=== PATIENT | female | born 1935 | race Caucasian/White ===

== ENCOUNTER 2016-10-10 14:14 | Outpatient (CLI) | payer MEDICARE, OTHER ==
[2014-03-30 09:56] VITALS: BP 131/61
== END 2016-10-10 14:15 ==
LOC: LAB 14:14
PROVIDERS: ATTEND Family Medicine
DX: E83.52 Hypercalcemia (principal)
CPT/HCPCS: 36415; 82310; 83970

== ENCOUNTER 2017-01-08 11:01 | Outpatient (CLI) | payer MEDICARE, OTHER ==
[2014-03-30 09:56] VITALS: BP 131/61
[2017-01-08 11:18] LABS: BASOPHILS % 0.7 (0.0-1.5); EOSINOPHILS % 1.4 % (0.0-6.8); MEAN CORPUSCULAR HEMOGLOBIN 25.7 pg (28.0-34.0); MONOCYTES % 6.9 % (0.0-11.0); NEUTROPHILS # 3.8 # k/uL (1.4-7.7)
--- NOTE | 2017-01-08 17:07 | Diagnostic Imaging Report ---
[facility] [address] [facility].[address] [address] Report Submission Date: January 08, 2017 4:15:40 PM CDT Patient Study Name: NORMA TRUJILLO Date: January 08, 2017 11:19:46 AM CDT Modality Type: CR Gender: F Description: CHEST : 35 Institution: [facility] Physician: MEJIA SOUZA - OP 2 views of the chest History: NON-PRODUCTIVE COUGH X COUPLE WEEKS. NON-SMOKER. ORDER STATES RIGHT CERVICAL LAD Findings: Comparison: None available Cardiomegaly is present with aortic calcification. Aorta is tortuous There is patchy opacity in the right lower lung field with slight obscuration of the right heart border. Minimal left basilar atelectasis. Multilevel degenerative changes of the thoracic spine are seen with demineralized bones Impression: 1. Infiltrate right lower lung. Recommend followup to resolution. 2. Minimal left basilar atelectasis. No pleural effusion. Electronically signed on January 08, 2017 4:15:40 PM CDT by: Judy SAUCEDO
== END 2017-01-08 11:02 ==
LOC: RAD 11:01
PROVIDERS: ATTEND Family Medicine
DX: E11.9 Type 2 diabetes mellitus without complications (principal); R59.0 Localized enlarged lymph nodes
CPT/HCPCS: 36415; 71020; 83036; 85025

== ENCOUNTER 2017-04-30 13:44 | Outpatient (CLI) | payer MEDICARE, OTHER ==
[2014-03-30 09:56] VITALS: BP 131/61
[2017-04-30 14:18] LABS: eGFR (African) > 60; eGFR (Non-African) > 60
== END 2017-04-30 13:45 ==
LOC: LAB 13:44
PROVIDERS: ATTEND Internal Medicine Hematology & Oncology
DX: C85.10 Unspecified B-cell lymphoma, unspecified site (principal); D47.2 Monoclonal gammopathy
CPT/HCPCS: 36415; 80048

== ENCOUNTER 2017-07-09 16:42 | Emergency (ER) | payer MEDICARE, OTHER ==
[2017-07-09] MEDS: MAG HYDROX/AL HYDROX/SIMETH 30 ML, Lidocaine 2%Visc 15ml 20 MG, PHENobarb/HYOSCY/ATROPI... PO ONE ×3 (17:11)
[2017-07-09] MEDS: MAGNESIUM HYDROXIDE/AL HYDROX 30 ML UDC PO ONE (17:15)
[2017-07-09] MEDS: ASPIRIN 81 MG CHEW TAB PO ONE (17:15)
[2017-07-09] MEDS: Lidocaine 2%Visc 15ml 20 MG/ML UDC ONE (17:15)
[2017-07-09 17:18] LABS: BASOPHILS % 1.1 (0.0-1.5); EOSINOPHILS % 0.7 % (0.0-6.8); MEAN CORPUSCULAR HEMOGLOBIN 30.5 pg (28.0-34.0); MEAN CORPUSCULAR VOLUME 88.7 fl (80.0-100.0); MONOCYTES % 8.6 % (0.0-11.0); NEUTROPHILS # 5.9 # k/uL (1.4-7.7)
--- NOTE | 2017-07-09 17:24 | ED Physician Documentation ---
Chest Pain - HISTORIAN Historian: patient - HPI Stated Complaint: chest pain Chief Complaint: Chest Pain Additional Information: chest pain low substernal epigastric rad to lt low costal margin koccasional rt low costal margin--hd similar resolved ww/antacids Onset: hours (1300) Timing: gradual onset, still present Duration: waxing, waning (no other radiation no diaphoresis or sodb) Last known Well Date: 07/09/17 Last Known Well Time: 13:00 Context: rest Severity: moderate Quality: pressure, burning, dull Chest Pain Radiation: no radiation Chest Pain Signs/Symptoms: denies: nausea, vomiting, diaphoresis Worsened By: movement, change in position Relieved By: antacids - ROS CONST: no problems MS/LYMPH: none GI/: none EYES/ENT: none SKIN/ENDO: none NEURO/PSYCH: none - PAST HX [place] risk factors: hypertension, other (ca lung no cure lymphoma under tx htn ca kidney) DVT/PE Risk Factors: cancer Neuro deficit: none GI disease: GERD Lung disease: other (ca rt--no cure) Surgeries/Procedures: other (ca kidney removed w/ cure) Allergies/Adverse Reactions: Allergies Allergy/AdvReac Type Severity Reaction Status Date / Time No Known Allergies Allergy Unverified 07/09/17 17:01 Home Medications: Ambulatory Orders Medication Instructions Recorded Docusate Sodium [Colace] 100 mg PO BID 07/09/17 Gemfibrozil [Lopid] 600 mg PO HS 07/09/17 HYDROcodone /APAP 5/325 [[place] 1 each PO Q4 PRN 07/09/17 5/325] Multivitamin [Zoo Chews] 1 each PO QDAY 07/09/17 - SOCIAL HX Smoking History: non-smoker Alcohol Use: none Drug Use: none - FAMILY HX Family HX: none - VITAL SIGNS Vital Signs: Vital Signs Temp Pulse Resp BP Pulse Ox 98.0 F 76 15 198/82 98 07/09/17 16:44 07/09/17 17:06 07/09/17 16:44 07/09/17 16:44 07/09/17 17:06 - REVIEWED ASSESSMENTS Nursing Assessment Reviewed: Yes Vitals Reviewed: Yes Progress - Progress Progress: we called [facility]BI MARTINEZ at pt request where her oncologists DR GUZMÁN sees her. we spoke w/[employer] admissions representative LIAM SANTIAGO RN. he called back requesting A ct of chest abd and pelvis per order from DR KEARNS for eval prior to transfer. this is in progress. ED Results Lab/Radiology - Orders Orders: ED Orders Category Date Time Status Continuous EKG monitoring Q30M Care 07/09/17 17:06 Active Continuous Pulse Oximetry Q30M Care 07/09/17 17:06 Active CHEST 1 VIEW [RAD] Stat Exams 07/09/17 17:06 Ordered CBC/PLATELET/DIFF Routine Lab 07/09/17 17:06 Received CMP Routine Lab 07/09/17 17:06 Received TROPONIN I (cTnI) Stat Lab 07/09/17 17:06 Received Aspirin Med 07/09/17 17:06 Discontinued 324 mg PO NOW ONE Lidocaine 2%Visc 15ml [Xylocaine] Med 07/09/17 17:03 Discontinued 300 mg .ROUTE .STK-MED ONE Mag Hydrox/Al Hydrox/Simeth [Mylanta] 30 ml Med 07/09/17 17:07 Discontinued Lidocaine 2%Visc 15ml [Xylocaine] 20 mg PHENobarb/HYOSCY/ATROPINE/SCOP [] 10 ml PO NOW Magnesium Hydroxide/Al Hydrox [Maalox] Med 07/09/17 17:03 Discontinued 30 ml PO .STK-MED ONE EKG WITH COMPARISON Stat Ther 07/09/17 17:06 Ordered Chest Pain Physical Exam - EXAM General Appearance: moderate distress, anxious EENT: eye inspection normal Neck: nml inspection, no carotid bruit. No: JVD present, lymphadenopathy Respiratory: no resp. distress, chest non-tender, nml breath sounds. No: resp.distress, manifests distinct pain on movement, decreased air movement, wheezes, rales CVS: reg. rate & rhythm, no murmur Abdomen: soft, tenderness (epigastric and to lt sub costal) Skin: No: cyanosis, diaphoresis, jaundice Extremities: non-tender, normal range of motion, no evidence of injury, no edema Neuro: oriented X3, motor nml, sensation nml, mood/affect nml, cognition normal Discharge Clincal Impression: lt diaphramatic hiatal hernia, mild pulm atelectasis, pulmonary metastasis, lt nephrectomy, consstipation w/sy of incomplete gi obst, nasogastric gi tube, hx lymphoma Referrals: Ping Obando MD [Primary Care Provider] - 2 Days Comments: pt sig improved w/ ng tube and bowel decompression. multi discussion w/ [facility] acceptance by DR KEARNS Condition: Fair Disposition: 02 [facility] Decision to Admit: [id number] Decision Time: 22:40
[2017-07-09 17:27] LABS: eGFR (African) > 60; eGFR (Non-African) > 60
[2017-07-09] MEDS: ONDANSETRON HCL/PF 4 MG/ 2ML VIAL ONE (18:20)
[2017-07-09] MEDS: ONDANSETRON HCL/PF 4 MG/ 2ML VIAL IVP ONE (18:24)
--- NOTE | 2017-07-09 18:39 | Diagnostic Imaging Report ---
[facility] [address] [facility].[address] [address] Report Submission Date: Jul 09, 2017 6:23:55 PM BUILDING CERTIFIER Patient Study Name: NORMA TRUJILLO Date: Jul 09, 2017 6:03:43 PM BUILDING CERTIFIER Modality Type: CR Gender: F Description: ABDOMEN : 35 Institution: [facility] Physician: BETH MARKS - ER Examination: Obstruction series History: Abdominal discomfort Findings: 3 views obtained of the abdomen. No abnormal dilation of the large or small bowel. Air and stool throughout the large bowel. No suspicious calcification projecting over the renal fossa or the lower pelvic region. Osseous structures demonstrate lumbar curvature to the right. Abdominal surgical robbie. Impression: No obstruction. No suspicious calcifications by plain film sensitivity. Electronically signed on Jul 09, 2017 6:23:55 PM BUILDING CERTIFIER by: Jesse SAUCEDO
[2017-07-09] MEDS: SIMETHICONE 80 MG TAB.CHEW ONE ×2 (19:16→22:36)
[2017-07-09] MEDS: SIMETHICONE 80 MG TAB.CHEW PO PRN (19:16)
[2017-07-09] MEDS: PANTOPRAZOLE SODIUM 40 MG in 0.9 % SODIUM CHLORIDE 50 ML IV SCH (19:16)
[2017-07-09] MEDS: PANTOPRAZOLE SODIUM INJ. 40 MG VIAL ONE (19:20)
[2017-07-09] MEDS: LORazepam 2 MG/ML VIAL IVP ONE (19:26)
[2017-07-09] MEDS ORDERED: 0.9 % SODIUM CHLORIDE 1,000 ML IV ONE (22:45)
[2017-07-09] MEDS: 0.9 % SODIUM CHLORIDE 1,000 ML IV SCH (22:50)
[2017-07-09 23:28] VITALS: BP 152/96
--- NOTE | 2017-07-10 07:14 | Diagnostic Imaging Report ---
BETH MARKS [facility] [address] [facility].[address] [address] Report Submission Date: Jul 09, 2017 9:51:38 PM SMALL BUSINESS BANKING OFFICER Patient Study Name: NORMA TRUJILLO Date: Jul 09, 2017 9:13:21 PM SMALL BUSINESS BANKING OFFICER Modality Type: CT\SR Gender: F Description: : 35 Institution: [facility] Physician: BETH MARKS CT of the chest, abdomen and pelvis with contrast CLINICAL HISTORY: Chest and abdominal pain. History of lung carcinoma. History of renal carcinoma status post left nephrectomy. Contrast administered: 89 mL of Visipaque. TECHNIQUE: CT of the chest, abdomen and pelvis is performed with intravenous infusion of contrast. Sagittal and coronal reconstructions are performed by the technologist. FINDINGS: There are multiple bilateral pulmonary nodules consistent with pulmonary metastases. There is a 1.7 x 1.8 cm mass in the left hemithorax adjacent to the mediastinum at the level of the aortic arch consistent with malignancy. There is a larger lobulated mass in the right lower lobe measuring 4.1 x 2.5 cm in cross-sectional diameter. There are small mediastinal nodes but no significant adenopathy. Vascular structures enhance normally. There is diaphragmatic hernia on the left with herniation of portion of the gastric body into the left hemithorax. This is mildly distended with an air-fluid level. Small left pleural effusion is demonstrated. Nasogastric tube is present with tip extending into the gastric body. Liver and spleen demonstrate normal attenuation without focal defect. Gallbladder is normally distended. There is no pancreatic or adrenal abnormality. Left kidney is surgically absent. Right kidney demonstrates normal enhancement. Vascular calcification is present in the abdominal aorta without evidence of aneurysm. There is no retroperitoneal mass or significant adenopathy. Bladder is unremarkable. Uterus and adnexal structures are within normal limits. There is no free fluid in the pelvis or abdomen. IMPRESSION: Postoperative changes status post left nephrectomy apparent left diaphragmatic hernia with herniation of the gastric body into left hemithorax. Multiple bilateral pulmonary nodules consistent with pulmonary metastases. Vascular calcification. Thoracolumbar spondylosis and scoliosis. Electronically signed on Jul 09, 2017 9:51:38 PM SMALL BUSINESS BANKING OFFICER by: Rajan SAUCEDO
--- NOTE | 2017-07-10 07:14 | Diagnostic Imaging Report ---
BETH MARKS [facility] [address] [facility].[address] [address] Report Submission Date: Jul 09, 2017 9:51:38 PM JOURNEYMAN ELECTRICIAN Patient Study Name: NORMA TRUJILLO Date: Jul 09, 2017 9:13:21 PM JOURNEYMAN ELECTRICIAN Modality Type: CT\SR Gender: F Description: : 35 Institution: [facility] Physician: BETH MARKS CT of the chest, abdomen and pelvis with contrast CLINICAL HISTORY: Chest and abdominal pain. History of lung carcinoma. History of renal carcinoma status post left nephrectomy. Contrast administered: 89 mL of Visipaque. TECHNIQUE: CT of the chest, abdomen and pelvis is performed with intravenous infusion of contrast. Sagittal and coronal reconstructions are performed by the technologist. FINDINGS: There are multiple bilateral pulmonary nodules consistent with pulmonary metastases. There is a 1.7 x 1.8 cm mass in the left hemithorax adjacent to the mediastinum at the level of the aortic arch consistent with malignancy. There is a larger lobulated mass in the right lower lobe measuring 4.1 x 2.5 cm in cross-sectional diameter. There are small mediastinal nodes but no significant adenopathy. Vascular structures enhance normally. There is diaphragmatic hernia on the left with herniation of portion of the gastric body into the left hemithorax. This is mildly distended with an air-fluid level. Small left pleural effusion is demonstrated. Nasogastric tube is present with tip extending into the gastric body. Liver and spleen demonstrate normal attenuation without focal defect. Gallbladder is normally distended. There is no pancreatic or adrenal abnormality. Left kidney is surgically absent. Right kidney demonstrates normal enhancement. Vascular calcification is present in the abdominal aorta without evidence of aneurysm. There is no retroperitoneal mass or significant adenopathy. Bladder is unremarkable. Uterus and adnexal structures are within normal limits. There is no free fluid in the pelvis or abdomen. IMPRESSION: Postoperative changes status post left nephrectomy apparent left diaphragmatic hernia with herniation of the gastric body into left hemithorax. Multiple bilateral pulmonary nodules consistent with pulmonary metastases. Vascular calcification. Thoracolumbar spondylosis and scoliosis. Electronically signed on Jul 09, 2017 9:51:38 PM JOURNEYMAN ELECTRICIAN by: Rajan SAUCEDO
--- NOTE | 2017-07-10 10:46 | Diagnostic Imaging Report ---
BETH MARKS [facility] [address] [facility] [address] [place] [address]. [id number] Report Submission Date: Jul 09, 2017 5:37:19 PM EARLY EDUCATION TEACHER Patient Study Name: NORMA TRUJILLO Date: Jul 09, 2017 5:18:38 PM EARLY EDUCATION TEACHER Modality Type: CR Gender: F Description: CHEST : 35 Institution: [facility] Physician: BETH MARKS Single frontal view of the chest History: PATIENT STATES CHEST PAIN IN CENTER OF CHEST SINCE 1300 TODAY Comparison: January 08, 2017 Cardiac size is upper limits of normal Left chest central venous catheter tip terminates in the cavoatrial junction, surgical clips are noted in the lower neck. Pulmonary hilar prominence is again noted. Elevated left hemidiaphragm with left basilar atelectasis is present A rounded density in the right lower lung field noted, measures approximately 3.4 cm is indeterminate. Minimal right basal atelectasis Impression: 1. Elevated left hemidiaphragm with left basilar consolidation. 2. Patchy right basal atelectasis. 3. A 3.4 cm rounded density noted at the right lower lung field is indeterminate , unclear if this is external to the patient, cross-sectional imaging and/ or correlation with clinical examination is suggested Electronically signed on Jul 09, 2017 5:37:19 PM EARLY EDUCATION TEACHER by: Judy MARKS [facility] [address] [facility] [address] [address] Report Submission Date: Jul 09, 2017 6:35:31 PM EARLY EDUCATION TEACHER Patient Study Name: NORMA TRUJILLO Date: Jul 09, 2017 6:00:29 PM EARLY EDUCATION TEACHER Modality Type: CR Gender: F Description: CHEST : 35 Institution: [facility] Physician: BETH MARKS Single lateral view of the chest History: LATERAL CHEST. AP PERFORMED AT 1723 TODAY. POSSIBLE FOREIGN BODY VS TUMOR SEEN ON AP CHEST FROM TODAY Comparison is done to the portable chest radiograph, dated earlier the same day. Basal atelectasis is present. A faint 3.7 cm rounded density is partially visible in the posterolateral chest /upper abdomen, this is indeterminate, appears stable since January 08, 2017 Impression: Indeterminate rounded density at the posterior right lower chest/upper abdomen is indeterminate, appears stable since January 08, 2017, unclear if this is on patient's skin. Please correlate with examination. Cross-sectional imaging may be done as relevant. Electronically signed on Jul 09, 2017 6:35:31 PM EARLY EDUCATION TEACHER by: Judy SAUCEDO
== END 2017-07-09 23:15 | disposition short-term general hospital (02) ==
LOC: ED 16:42
DX: K44.9 Diaphragmatic hernia without obstruction or gangrene (principal); J98.11 Atelectasis; K59.09 Other constipation
CPT/HCPCS: 71020; 71260; 74020; 74177; 80053; 84484; 85025; 93005; A9270; J2060; J2405; J7030; 71010; 96361; 96374; 96375; 99284; S1016